=== PATIENT | female | born 1975 | race Caucasian/White ===

== ENCOUNTER 2016-08-05 16:14 | Emergency (ER) | payer MEDICARE ==
[~2016-08-05 16:14] MED LIST: CELEXA40 MG PO; IBUPROFEN600 MG PO; KEFLEX500 MG PO; KLONOPIN1 MG PO; NICODERM 21MG PA1 EA TD; OXCARBAZEPINE300 MG PO; OXCARBAZEPINE600 MG PO; PERCOCET 5-3251 EACH PO; PROZAC20 MG PO; SULFAMETHOXAZO1 EACH PO; TRILEPTAL150 MG PO; ZITHROMAX500 MG PO; ZUBSOLV 5.7-1.1 EACH PO
[2016-08-05 17:11] LABS: URINE BILIRUBIN NEGATIVE (NEGATIVE); URINE BLOOD NEGATIVE (NEGATIVE); URINE GLUCOSE (UA) NORMAL (NORMAL); URINE KETONE 3+ (NEGATIVE); URINE LEUKOCYTE ESTERASE TRACE (NEGATIVE); URINE NITRATE NEGATIVE (NEGATIVE); URINE PROTEIN TRACE (NEGATIVE); UROBILINOGEN NORMAL mg/dL (<1.0)
[2016-08-05 17:35] LABS: URINE AMORPHOUS SEDIMENT 2+; URINE BACTERIA 1+ (NONE SEEN); URINE SQUAMOUS EPITHELIAL CELL 15-20 /[HPF] (NONE SEEN); URINE WBC 0-5 /[HPF] (0-5)
== END 2016-08-05 17:51 | disposition home or self-care (01) ==
LOC: ER 16:14
PROVIDERS: Internal Medicine
DX: K59.00 Constipation, unspecified (principal); R10.9 Unspecified abdominal pain; F17.210 Nicotine dependence, cigarettes, uncomplicated; Z79.899 Other long term (current) drug therapy
CPT/HCPCS: 74000; 81001; 99070; 99284-25

== ENCOUNTER 2016-09-03 16:16 | Emergency (ER) | payer MEDICARE | END 2016-09-03 17:04 | disposition home or self-care (01) | LOC: ER 16:16 | DX: F41.9 Anxiety disorder, unspecified (principal); J11.1 Influenza due to unidentified influenza virus with other respiratory manifestations; F31.9 Bipolar disorder, unspecified; F11.20 Opioid dependence, uncomplicated; E66.9 Obesity, unspecified; F17.210 Nicotine dependence, cigarettes, uncomplicated; Z79.899 Other long term (current) drug therapy ==